=== PATIENT | female | born 1965 | race African-American/Black ===

== ENCOUNTER 2016-11-17 18:45 | Emergency (ER) | payer BC, OTHER ==
[~2016-11-17] VITALS: Ht 157.5 cm; Wt 68.0 kg
[2016-11-17 19:38] LABS: BASOPHILS % (AUTO) 0.8 % (0.0-2.0); EOSINOPHILS # (AUTO) 0.3 /CMM (0.0-0.7); EOSINOPHILS % (AUTO) 5.4 % (0.0-6.0); HEMATOCRIT 41 % (33-45); HEMOGLOBIN 13.8 g/dL (11.5-14.8); LYMPHOCYTES # (AUTO) 1.7 /CMM (0.8-4.8); LYMPHOCYTES % (AUTO) 35.5 % (20.0-44.0); MEAN CORPUSCULAR HEMOGLOBIN 30 PG (26.0-33.0); MEAN CORPUSCULAR HGB CONC 33 g/dl (31.0-36.0); MEAN CORPUSCULAR VOLUME 90 fL (82-100); MONOCYTES # (AUTO) 0.4 /CMM (0.1-1.30); MONOCYTES % (AUTO) 9.6 % (2.0-12.0); NEUTROPHILS # (AUTO) 2.3 /CMM (1.8-8.9); NEUTROPHILS % (AUTO) 48.7 % (43.0-81.0); PLATELET COUNT (AUTO) 260 /CMM (150-450); RDW COEFFICIENT OF VARIATION 13.7 (11.5-15.0); RED BLOOD CELL COUNT(AUTO) 4.62 MIL/uL (4.0-5.2); WHITE BLOOD COUNT (AUTO) 4.7 K/uL (4.3-11.0)
--- NOTE | 2016-11-17 19:40 | NUR ---
RECEIVED REPORT AT TIME. C/O "CHEST PAIN/SOB X1 HOUR". NON DIAPHROETIC. LUNGS CLEAR TO AUSCULTATION. RESP EVEN AND UNLABORED. SPEAKS IN FULL SENTENCES WITHOUT GASPING FOR BREATHS. PLACED ON MONITOR. CARE PLAN DISCUSSED.
[2016-11-17] MEDS ORDERED: NITROGLYCERIN 0.4 MG/TAB BOTTLE ONE (19:44)
[2016-11-17] MEDS ORDERED: ASPIRIN 325 MG TABLET ONE (19:44)
[2016-11-17] MEDS: ASPIRIN 325 MG TABLET PO ONE (19:47)
[2016-11-17 19:49] LABS: CARBON DIOXIDE 27 mmol/L (21-32); CHLORIDE 107 mmol/L (98-107); CREATININE 0.9 mg/dL (0.6-1.3); GLUCOSE 95 mg/dL (74-106); SODIUM SERUM 142 mmol/L (136-145); UREA NITROGEN, BLOOD 12 mg/dL (7-18)
[2016-11-17] MEDS: NITROGLYCERIN 0.4 MG/TAB BOTTLE SL ONE (19:53)
[2016-11-17 19:54] LABS: INR 0.94 (0.87-1.13)
[2016-11-17 19:58] LABS: TROPONIN I < 0.017 ng/mL (0.00-0.056)
--- NOTE | 2016-11-17 20:16 | NUR ---
ON PHONE TEXTING. STATES "I DONT FEEL THAT MUCH OF A DIFFERENCE AFTER THE 1ST NTG. GIVEN 2ND ONE. NOTIFIED.
--- NOTE | 2016-11-17 21:08 | NUR ---
Note debra in ED - 11/17/16 at 2109 by LANDRY AWAITIS RESULTS. NAD NOTED. RESP EVEN AND UNLABORED.
--- NOTE | 2016-11-17 21:09 | NUR ---
RESTING WITH EYES CLOSED BUT AROUSABLE. DENIES ANY NEW SX'S AT THIS TIME.LIGHTS TURNED OUT FOR COMFORT. RESP EVEN AND UNLABORED.
[2016-11-17] MEDS ORDERED: KETOROLAC TROMETHAMINE INJ 30 MG/ML VIAL ONE (21:27)
[2016-11-17] MEDS: KETOROLAC TROMETHAMINE INJ 30 MG/ML VIAL IV ONE (21:38)
[2016-11-17] MEDS ORDERED: IOHEXOL-350 100 ML VIAL IV ONE (21:40)
[2016-11-17] MEDS ORDERED: CT SWABBABLE VALVE TRANS SET 1 EA INFUS.SET MC ONE (21:41)
--- NOTE | 2016-11-17 22:39 | NUR ---
AWAITS CT RESULTS. NAD NOTED
--- NOTE | 2016-11-17 22:49 | NUR ---
Patient discharged to home in stable condition. Written and verbal after care instructions given. Patient verbalizes understanding of instruction.IV removed. Catheter intact and site benign. Pressure and 4x4 applied to site. No bleeding noted.
[2016-11-17 22:50] VITALS: BP 115/88
== END 2016-11-17 22:51 | disposition home or self-care (01) ==
LOC: ER 18:46
DX: S29.011A Strain of muscle and tendon of front wall of thorax, initial encounter (principal); E78.00 Pure hypercholesterolemia, unspecified; Z85.3 Personal history of malignant neoplasm of breast; X58.XXXA Exposure to other specified factors, initial encounter; Y93.89 Activity, other specified; Y92.89 Other specified places as the place of occurrence of the external cause; Y99.9 Unspecified external cause status
CPT/HCPCS: 36415; 71010-TC; 80048-TC; 84484-TC; 85025-TC; 85730-TC; A4606; J1885; Q9967; Z7610

== ENCOUNTER 2017-05-14 12:00 | Emergency (ER) | payer BC, OTHER ==
[~2017-05-14] VITALS: Ht 157.5 cm; Wt 70.3 kg
[2017-05-14 12:12] VITALS: BP 109/74
--- NOTE | 2017-05-14 12:15 | NUR ---
AAOX3, C/O NAUSEA, VOMTING, DIARHEA, AND ABDOMINAL PAIN SINCE THIS MORNING. RR IS EVEN AND UNLABORED WITH NAD NOTED. SKIN IS WARM AND DRY. AWAITING MD FOR EVAL.
== END 2017-05-14 13:32 | disposition home or self-care (01) ==
LOC: ER 12:02
DX: R19.7 Diarrhea, unspecified (principal); R11.0 Nausea; R10.9 Unspecified abdominal pain
CPT/HCPCS: 99283; A4606; Z7610